=== PATIENT | female | born 2000 | race African-American/Black ===

== ENCOUNTER 2022-03-06 17:15 | Inpatient (IN) | payer OTHER ==
[2022-03-06 20:20] VITALS: BMI 23.9
[2022-03-06] MEDS ORDERED: Ipratropium/Albuterol 3 ML NEB NEB PRN (20:45)
[2022-03-06] MEDS ORDERED: Ondansetron PF 4 MG/2 ML Vial IVP PRN (20:45)
[2022-03-06] MEDS ORDERED: Dextrose 50% Abboject 50 ML SYRINGE SLOW IVP PRN (20:45)
[2022-03-06] MEDS ORDERED: TETANUS, DIPHTHERIA TOX,ADULT (TDVAX) 0.5 ML VIAL IM ONE (20:45)
[2022-03-06] MEDS ORDERED: traMADol HCl 50 MG TAB PO PRN ×2 (20:45)
[2022-03-06] MEDS ORDERED: Ondansetron ODT 4 MG TAB PO PRN (20:45)
[2022-03-06] MEDS ORDERED: Dextrose 5% in Water 1,000 ML IV PRN (20:45)
[2022-03-06] MEDS ORDERED: Acetaminophen 500 MG TAB PO PRN (21:00)
[2022-03-06] MEDS ORDERED: Famotidine 20 MG TAB PO SCH (21:00)
[2022-03-06] MEDS ORDERED: Sodium Chloride 0.9% 1,000 ML IV SCH (23:55)
[2022-03-07 00:24] LABS: SARS-CoV-2 NAA Rapid Test Not Detected (NotDetected)
[2022-03-07] MEDS ORDERED: fentaNYL PF 100 MCG/2 ML SYRINGE ONE (16:48)
[2022-03-07] MEDS ORDERED: Propofol 500 MG/50 ML VIAL ONE ×2 (16:48→16:49)
[2022-03-07] MEDS ORDERED: CEFAZOLIN 2 GM in Sodium Chloride 0.9% 100 ML IVPB SCH (17:45)
[2022-03-08 03:36] VITALS: BP 100/60; TEMP 98.2
[2022-03-08] MEDS ORDERED: Propofol 500 MG/50 ML VIAL ONE (06:15)
[2022-03-08] MEDS ORDERED: fentaNYL PF 100 MCG/2 ML SYRINGE ONE ×2 (06:15)
[2022-03-08] MEDS ORDERED: Bupivacaine PF 0.5% 30 ML VIAL ONE (06:38)
[2022-03-08] MEDS ORDERED: Bacitracin Zinc Ointment 30 gm TUBE ONE (06:38)
[2022-03-08] MEDS ORDERED: Ropivacaine 0.5% HCl/PF (150 MG/30 ML VIAL) ONE (06:39)
[2022-03-08] MEDS ORDERED: Betamet Acet/Betamet Na Ph 30 MG/5 ML VIAL ONE (06:40)
[2022-03-08] MEDS ORDERED: CEFAZOLIN 1 GM VIAL ONE (07:12)
[2022-03-08] MEDS ORDERED: Sodium Chloride 0.9% 100 ML ONE (07:12)
[2022-03-08 07:17] LABS: #Basophils 0.1 thou/uL (0.0-0.2); #Eosinphils 0.2 thou/uL (0.0-0.7); #Lymphocytes 2.6 thou/uL (1.20-3.40); #Monocytes 0.8 thou/uL (0.11-0.59); #Neutrophils 4.7 thou/uL (1.40-6.50); %Basophils 1.2 % (0.0-1.0); %Eosinophils 2.3 % (0.0-10.0); %Lymphocytes 30.7 % (21.0-51.0); %Monocytes 9.8 % (0.0-10.0); Mean Corpuscular HGB CONC 33.7 g/dL (32.0-36.0); Mean Corpuscular Hemoglobin 28.4 pg (27.0-31.0); Mean Corpuscular Volume 84.3 fl (78.0-98.0); Mean Platelet Volume 7.2 fL (7.4-10.4); Platelet Count 346 10x3/uL (130-400); RBC Distribution Width 15.5 % (11.5-14.5); Red Blood Cell (RBC) Count 3.87 mill/uL (4.20-5.40); White Blood Cell (WBC) Count 8.4 10x3/uL (4.8-10.8)
[2022-03-08] MEDS ORDERED: Neomycin-Polymyxin 1 ML AMP ONE (07:21)
[2022-03-08 07:31] LABS: Anion Gap 11 mmol/L (10-20); BUN (Urea Nitrogen) 9 mg/dL (7.0-18.7); Calc. Creatinine Clearance 132 mL/min (70-130); Calcium 9.1 mg/dL (7.8-10.44); Carbon Dioxide 22 mmol/L (22-29); Chloride 106 mmol/L (98-107); Estimated GFR 118; Glucose 85 mg/dL (70-105); Magnesium 1.9 mg/dL (1.6-2.6); Phosphorus 3.8 mg/dL (2.3-4.7); Potassium 3.8 mmol/L (3.5-5.1); Sodium 135 mmol/L (136-145)
[2022-03-08] MEDS ORDERED: Acetaminophen/Codeine 30-300mg Tablet PO PRN (10:25)
== END 2022-03-08 15:07 | disposition home or self-care (01) | DRG 818 ==
LOC: SJJU 17:15
PROVIDERS: ADMIT Specialist; ATTEND Specialist
PROC: 0RBR0ZZ Excision of Left Carpal Joint, Open Approach (ICD-10-PCS; principal; 2022-03-08)
DX: O9A.211 Injury, poisoning and certain other consequences of external causes complicating pregnancy, first trimester (principal); S66.922A Laceration of unspecified muscle, fascia and tendon at wrist and hand level, left hand, initial encounter; Z20.822 Contact with and (suspected) exposure to COVID-19; S66.902A Unspecified injury of unspecified muscle, fascia and tendon at wrist and hand level, left hand, initial encounter; S64.02XA Injury of ulnar nerve at wrist and hand level of left arm, initial encounter; V49.60XA Unspecified car occupant injured in collision with unspecified motor vehicles in traffic accident, initial encounter
CPT/HCPCS: 76801; 76815; 80048; 83735; 84100; 85025; J0690; J0702; J2704; J2795; J3490; J7050; S0020; U0002